=== PATIENT | male | born 1960 | race Caucasian/White ===

== ENCOUNTER 2016-08-01 11:22 | Inpatient (IN) | payer OTHER, BC ==
[2016-07-28 11:18] LABS: BASOPHILS 0.3 %; BASOPHILS ABSOLUTE 0.03 10/3/uL (0.0-0.16); EOSINOPHILS 3.9 %; EOSINOPHILS ABSOLUTE 0.38 10/3/uL (0.0-0.53); HEMATOCRIT 45.3 % (40.0-51.0); HEMOGLOBIN 15.6 g/dL (13.6-17.8); IMMATURE GRANULOCYTES 0.2 %; IMMATURE GRANULOCYTES ABSOLUTE 0.02 10/3/uL (0.0-0.11); LYMPHOCYTES ABSOLUTE 1.86 10/3/uL (0.67-4.30); MEAN CORPUS HGB CONC 34.4 g/dL (32.0-36.0); MEAN CORPUSCULAR HEMOGLOB 32.5 pg (26.0-34.0); MEAN CORPUSCULAR VOLUME 94.4 fL (80-100); MEAN PLATELET VOLUME 9.8 fL (9.2-13.0); MONOCYTES 10.1 %; MONOCYTES ABSOLUTE 0.99 10/3/uL (0.21-1.20); NEUTROPHILS 66.5 %; PLATELET COUNT 254 10/3/uL (150-400); RBC DISTRIBUTION WIDTH 12.7 % (12.0-16.0); WHITE BLOOD CELLS 9.8 10/3/uL (4.5-10.5)
[2016-07-28 11:21] LABS: MANUAL DIFF NO %
[2016-07-28 11:44] LABS: A/G RATIO 1.1 (0.7-1.9); ALBUMIN 4.1 G/DL (3.5-5.0); ALKALINE PHOSPHATASE 88 U/L (45-117); BUN (BLOOD UREA NITROGEN) 13 MG/DL (6-23); CALCIUM, SERUM 9.9 MG/DL (8.5-10.4); CHLORIDE, SERUM 99 MMOL/L (96-112); CO2 (CARBON DIOXIDE) 29 MMOL/L (24-34); CREATININE 0.94 MG/DL (0.70-1.30); GFR AFRICAN AMERICAN 103 ML/MIN (>=60); GFR NON AFRICAN AMERICAN 89 ML/MIN (>=60); GLOBULIN 3.8 G/DL (2.5-4.1); GLUCOSE, SERUM 93 MG/DL (60-99); POTASSIUM, SERUM 4.6 MMOL/L (3.5-5.3); SGOT(AST) 31 U/L (5-40); SGPT(ALT) 39 U/L (5-65); SODIUM, SERUM 137 MMOL/L (135-148); TOTAL BILIRUBIN 0.8 MG/DL (0-1.2); TOTAL PROTEIN 7.9 G/DL (6.0-8.5)
--- NOTE | ~2016-08-01 | OP ---
Record Of Operation [facility] [address] [place]. [address] NAME: ZAID SIMPSON : 56 STATUS : ADM IN [facility]#: [id number] AGE: 56 ADM/REG DATE : 08/01/16 MR#: [id number] REPORT SERV DATE: 08/02/16 DICTATED BY: PABLO JACOME DATE: 08/02/16 REPORT STATUS : Draft TRANSCRIBED BY: MODL DATE: 08/02/16 DATE OF PROCEDURE: 08/01/2016 PREOPERATIVE DIAGNOSIS: Type 4 paraesophageal hernia. POSTOPERATIVE DIAGNOSIS: Type 4 paraesophageal hernia. OPERATIONS PERFORMED: Laparoscopic repair of a type 4 paraesophageal hernia repair with Strattice mesh and posterior Urbano fundoplication. SURGEON: Pablo Jacome M.D. [employer]TRY [employer] WORKER: Dar Dubon MD. ESTIMATED BLOOD LOSS: Less than 20 mL. IV FLUIDS: Adequate. INDICATIONS FOR PROCEDURE: Mr. Simpson is a 56-year-old gentleman, who has a type 4 paraesophageal hernia with significant symptoms of early satiety, chest discomfort, and shortness of breath. He has been evaluated by Cardiology with no cardiac issues. I felt that his symptoms are most likely secondary to his paraesophageal hernia. DESCRIPTION OF OPERATION: After appropriate sedation, the patient was prepped and draped in the appropriate sterile fashion. A 10 mm Optiview trocar was used to enter the abdomen just to the left and superior to the umbilicus. We then placed a right anterior axillary 5 mm, a midline 5 mm, a 10 mm left midclavicular, and a left 5 mm anterior axillary trocar under direct visualization. A snake liver retractor was then placed beneath the left lobe of the liver. He had a large diaphragmatic defect. The duodenum was seen going into the defect. The stomach was not visible. The omentum and the colon were seen going to the defect. We were able to reduce the colon and the omentum partially. We then opened the gastrohepatic attachments using the Harmonic scalpel. We then worked our way towards the right nova of the diaphragm. The attachments were taken off the right nova of the diaphragm, and the hernia sac was encountered. We incised the hernia sac working our way from right to left. As we came across anteriorly, it looked very tightly adherent. I was not able to fully reduce the stomach at this point. We then turned our attention towards the left side where we took down a couple of short gastric vessels using the Harmonic scalpel, then worked our way to the left nova of the diaphragm. This was all extremely difficult due to his morbid obesity as well as the significant amount of contents within the chest. We then continued to bring the stomach down incising the hernia sac anteriorly. We then brought the stomach and duodenum down slowly, and we were able to finally get the full extent of the duodenum and the body of the stomach down. We mobilized the fundus of the stomach, and we were able to bring it down where it looked to be the esophagus and GE junction well below the diaphragmatic hiatus. We then dissected posterior to the esophagus. We placed a Willie drain through the window and encircled the GE junction. The GE junction was then retracted inferiorly. Attachments to the esophagus were taken down using the Harmonic scalpel. The Record Of Operation [facility] [address] [place]. [address] NAME: ZAID SIMPSON : 56 STATUS : ADM IN [facility]#: [id number] AGE: 56 ADM/REG DATE : 08/01/16 MR#: [id number] REPORT SERV DATE: 08/02/16 DICTATED BY: PABLO JACOME DATE: 08/02/16 REPORT STATUS : Draft TRANSCRIBED BY: DIANA DATE: 08/02/16 posterior vagus nerve was clearly seen running along the esophagus and was preserved. At this point, we had a large amount of about approximately 4 to 5 cm of the esophagus below the diaphragm. There was a large amount of fat sitting against the left and right nova of the diaphragm. We placed a 5 mm trocar in the left lower quadrant. An endo-loop was placed around the fat and brought inferiorly. We then looked toward closing the very large diaphragmatic hiatus. I placed several 0 Nurolon sutures posteriorly. We then placed two more interrupted 0 Nurolon sutures which were buttressed with Strattice mesh. This closed up the diaphragmatic hiatus posteriorly. There was still an anterior defect. We placed another 0 Nurolon suture anteriorly. This closed up the defect satisfactorily. Our mesh was then brought lateral and then anterior. It was then glued to the diaphragm in this area using Evicel. It did appear to secure well. We then brought the fundus of the stomach posterior. It was sutured to the esophagus in the posterior door approach for 180 degree wrap. We then sutured the fundus to the diaphragm. Once we relaxed on the Willie drain, the GE junction stayed well below the diaphragm. There was no tension. We then cut out our Endoloop and our Fostoria drain. The Willie drain was removed. We were satisfied with our repair at this point. There was no evidence of twisting of the stomach or the esophagus. The liver retractor was then removed without evidence of injury to the liver. The trocars were removed under direct visualization. There was no bleeding from the abdominal wall. The abdomen was then desufflated. The skin was closed using interrupted running 4-0 Monocryl suture. Steri-Strips and dressings were then placed. The patient was taken to the recovery room in satisfactory condition. ANGIE/DIANA Pablo Jacome M.D. / [id number] CC: Pablo Jacome M.D.
[~2016-08-01 11:22] MED LIST: AT25 PO; BEN25 PO; CLARIT10 PO; COREG3 PO; PEP20 PO; PEPCID40 MG OR; PRINZIDE1 TA1 PO; ZYRTEC ALLGY10 MG PO
[2016-08-02] MEDS ORDERED: PR25 PO (15:04)
[2016-08-02] MEDS ORDERED: PCET PO (15:04)
== END 2016-08-02 15:49 | disposition home or self-care (01) | DRG 328 ==
LOC: UNK-PRE 11:22 → SDC/OF 17:55 → 5SO 18:36
PROVIDERS: Specialist
PROC: 0BUR4JZ (ICD-10-PCS; 2016-08-01)
PROC: 0DV44ZZ Restriction of Esophagogastric Junction, Percutaneous Endoscopic Approach (ICD-10-PCS; 2016-08-01)
PROC: 0BUS4JZ (ICD-10-PCS; principal; 2016-08-01 12:45)
DX: K44.9 Diaphragmatic hernia without obstruction or gangrene (principal); E66.9 Obesity, unspecified; I10 Essential (primary) hypertension; R68.81 Early satiety; Z82.49 Family history of ischemic heart disease and other diseases of the circulatory system; Z83.3 Family history of diabetes mellitus; Z79.899 Other long term (current) drug therapy; Z90.49 Acquired absence of other specified parts of digestive tract; Z72.89 Other problems related to lifestyle; Z68.31 Body mass index [BMI] 31.0-31.9, adult
CPT/HCPCS: 80053; 85025; 93005; A9270-GY; J0690; J1170; J2250; J2370; J2405; J2710; J3010; Q4130